=== PATIENT | female | born 2000 | race Two or more races ===

== ENCOUNTER 2024-04-19 20:19 | Inpatient (IN) | payer MEDICAID ==
[~2024-04-19] VITALS: Ht 180.3 cm; Wt 72.1 kg
[2024-04-19 20:34] LABS: COVID AG,FIA SOURCE NASAL SWAB
[2024-04-19 20:45] VITALS: O2SAT 99
[2024-04-19 20:52] LABS: BASOPHILS % (AUTO) 0.1 % (0.0-2.0); EOSINOPHILS % (AUTO) 0.2 % (1.0-6.0); HEMOGLOBIN 13.2 g/dL (12.0-16.0); LYMPHOCYTES # (AUTO) 1.4 K/uL (1.0-4.8); LYMPHOCYTES % (AUTO) 16.1 % (22.0-44.0); MEAN CORPUSCULAR HEMOGLOBIN 30.3 pg (26.0-34.0); MEAN CORPUSCULAR VOLUME 92 fL (80-100); MONOCYTES # (AUTO) 0.7 K/uL (0.1-1.0); MONOCYTES % (AUTO) 7.8 % (2.0-9.0); NEUTROPHILS # (AUTO) 6.4 K/uL (1.8-7.7); NEUTROPHILS % (AUTO) 75.8 % (40.0-70.0); PLATELET COUNT (AUTO) 236 K/uL (150-450); RED BLOOD CELL COUNT(AUTO) 4.37 MIL/uL (4.00-5.20); RED CELL DISTRIBUTION WIDTH 13.3 % (11.5-14.5); WHITE BLOOD COUNT (AUTO) 8.4 K/uL (4.5-11.0)
[2024-04-19 20:59] LABS: SARS-COV2 (COVID) ANTIGEN,FIA Negative (Negative)
[2024-04-19 21:02] LABS: ANION GAP 13 mmol/L (8-16); CALCIUM, TOTAL 9.3 mg/dL (8.8-10.5); CARBON DIOXIDE 22 mmol/L (22-29); CHLORIDE 103 mmol/L (98-107); CREATININE 0.74 mg/dL (0.60-1.30); GLOMERULAR FILTR. RATE CALC > 60 mL/min (>60); GLUCOSE,RANDOM 104 mg/dL (70-110); POTASSIUM 3.8 mmol/L (3.5-5.1); SODIUM SERUM 138 mmol/L (136-145); UREA NITROGEN, BLOOD 8 mg/dL (7-18)
[2024-04-19 21:04] LABS: ALCOHOL, URINE DRUG SCREEN NEGATIVE (NEGATIVE); AMPHET/METH SCREEN,URINE NEGATIVE (NEGATIVE); BARBITURATE SCREEN, URINE NEGATIVE (NEGATIVE); BENZODIAZEPINES SCREEN,URINE NEGATIVE (NEGATIVE); CANNABINOID SCREEN,URINE POSITIVE (NEGATIVE); COCAINE SCREEN,URINE NEGATIVE (NEGATIVE); METHADONE SCREEN, URINE NEGATIVE (NEGATIVE); OPIATE SCREEN,URINE NEGATIVE (NEGATIVE); PHENCYCLIDINE SCREEN,URINE NEGATIVE (NEGATIVE)
[2024-04-19 21:22] LABS: ALCOHOL, BLOOD (SERUM) < 3 mg/dL (0-10)
[2024-04-19] MEDS: HALOPERIDOL 5 MG TABLET PO ONE (21:28)
[2024-04-19] MEDS: LORazepam 2 MG TABLET PO ONE (21:29)
[2024-04-19] MEDS: DiphenhydrAMINE HCL 50 MG CAPSULE PO ONE (21:29)
[2024-04-19] MEDS ORDERED: HALOPERIDOL 5 MG TABLET PO PRN (23:45)
[2024-04-20 08:10] VITALS: BP 115/77; PULSE 95; RESP 16; TEMP 98.2; O2SAT 98
[2024-04-20] MEDS: RisperiDONE 1 MG TABLET PO SCH (11:37)
[2024-04-20 20:41] VITALS: BP 120/78; PULSE 100; RESP 18; TEMP 97.5; O2SAT 100
[2024-04-20] MEDS: ZOLPIDEM TARTRATE 10 MG TABLET PO PRN (22:14)
[2024-04-21 08:19] VITALS: BP 127/83; PULSE 100; RESP 16; TEMP 97.5; O2SAT 98
[2024-04-21] MEDS: LORazepam 2 MG TABLET PO PRN (09:57)
[2024-04-21] MEDS ORDERED: LOPERAMIDE HCL 2 MG CAPSULE PO PRN (11:45)
[2024-04-21] MEDS ORDERED: DOCUSATE SODIUM 100 MG CAPSULE PO PRN (11:45)
[2024-04-21] MEDS ORDERED: ONDANSETRON 4 MG TABLET PO PRN (11:45)
[2024-04-21] MEDS ORDERED: NICOTINE 14 MG/24 HOUR PATCH TD PRN (11:45)
[2024-04-21] MEDS ORDERED: ALBUTEROL SULFATE HFA 90 MCG/PUFF 8 GM INHALER IH PRN (11:45)
[2024-04-21] MEDS ORDERED: MAG HYDROX/ALUMINUM HYD/SIMETH ES 30 ML SUSPENSION UDCUP PO PRN (11:45)
[2024-04-21] MEDS ORDERED: CloNIDine HCL 0.1 MG TABLET PO PRN (11:45)
[2024-04-21] MEDS ORDERED: MAGNESIUM HYDROXIDE SUSPENSION 30 ML UDCUP PO PRN (11:45)
[2024-04-21] MEDS ORDERED: GuaiFENesin/D-METHORPHAN [SUGAR-FREE] 200-20MG/10 ML SYRUP UDCUP PO PRN (11:45)
[2024-04-21] MEDS ORDERED: PETROLATUM,WHITE 28 GM JELLY TP PRN (11:45)
[2024-04-21 20:13] VITALS: BP 116/76; PULSE 95; RESP 16; TEMP 79.8; O2SAT 98
[2024-04-21 21:21] VITALS: BP 116/76; PULSE 95; RESP 16; TEMP 97.8; O2SAT 98
[2024-04-22 08:18] VITALS: BP 128/76; PULSE 100; RESP 18; TEMP 97; O2SAT 98
[2024-04-22 08:21] LABS: CHOL/HDL RATIO 1.6 (3.9-5.7); THYROID STIMULATING HORMONE 0.86 uIU/mL (0.36-3.74)
[2024-04-22 18:03] VITALS: BP 126/77; PULSE 98; RESP 18; TEMP 97.6; O2SAT 100
[2024-04-22] MEDS: ACETAMINOPHEN 325 MG TABLET PO PRN (18:03)
[2024-04-22 19:03] VITALS: BP 120/75; PULSE 103; RESP 18; TEMP 97.8; O2SAT 100
[2024-04-22] MEDS ORDERED: RISP-31 PO (19:25)
[2024-04-22 20:28] VITALS: BP 120/75; PULSE 103; RESP 18; TEMP 97; O2SAT 100
[2024-04-23] MEDS: IBUPROFEN 400 MG TABLET PO PRN (02:54)
[2024-04-23 02:58] VITALS: BP 118/72; PULSE 96; RESP 17; TEMP 98.4; O2SAT 98
[2024-04-23 08:03] VITALS: BP 123/70; PULSE 92; RESP 16; TEMP 98.2; O2SAT 98
== END 2024-04-23 09:20 | disposition home or self-care (01) | DRG 776 ==
LOC: EMS 20:19 → B3A 04-20 00:10
PROVIDERS: ADMIT Psychiatry & Neurology Psychiatry; ATTEND Psychiatry & Neurology Psychiatry
PROC: GZHZZZZ Group Psychotherapy (ICD-10-PCS; principal; 2024-04-20)
PROC: GZ58ZZZ Individual Psychotherapy, Cognitive-Behavioral (ICD-10-PCS; 2024-04-21)
DX: F19.959 Other psychoactive substance use, unspecified with psychoactive substance-induced psychotic disorder, unspecified (principal); F20.0 Paranoid schizophrenia; F32.9 Major depressive disorder, single episode, unspecified; G47.00 Insomnia, unspecified; F41.9 Anxiety disorder, unspecified; K59.00 Constipation, unspecified; Z20.822 Contact with and (suspected) exposure to COVID-19; Z79.899 Other long term (current) drug therapy
CPT/HCPCS: 80048; 80061; 80307; 83036; 84443; 85025; 99285; G0480

== ENCOUNTER 2025-06-28 20:38 | Emergency (ER) | payer SELFPAY ==
[~2025-06-28] VITALS: Ht 180.3 cm; Wt 72.7 kg
[~2025-06-28 20:38] MED LIST: RISP-31 PO
[2025-06-28] MEDS: ACETAMINOPHEN 500 MG TABLET PO ONE (21:42)
[2025-06-28] MEDS ORDERED: AMOX500C2 PO (21:59)
[2025-06-28 22:10] VITALS: BP 100/56; PULSE 89; RESP 14; TEMP 100.4; O2SAT 99
== END 2025-06-28 22:15 | disposition home or self-care (01) ==
LOC: EMS 20:58
DX: S63.611A Unspecified sprain of left index finger, initial encounter (principal); H66.91 Otitis media, unspecified, right ear; Z79.899 Other long term (current) drug therapy; X58.XXXA Exposure to other specified factors, initial encounter; Y93.89 Activity, other specified; Y92.89 Other specified places as the place of occurrence of the external cause; Y99.8 Other external cause status
CPT/HCPCS: 99283

== ENCOUNTER 2025-07-01 16:04 | Emergency (ER) | payer BC, MEDICAID ==
[~2025-07-01] VITALS: Ht 180.3 cm; Wt 70.5 kg
[~2025-07-01 16:04] MED LIST changes: +AMOX500C2 PO
[2025-07-01] MEDS ORDERED: paracetamol PO (16:17)
[2025-07-01 16:52] LABS: COVID AG,FIA SOURCE NASAL SWAB
[2025-07-01 17:15] LABS: SARS-COV2 (COVID) ANTIGEN,FIA Negative (Negative)
[2025-07-01 17:16] LABS: INFLUENZA TYPE A NEGATIVE FOR TYPE A (NEGATIVE); INFLUENZA TYPE B NEGATIVE FOR TYPE B (NEGATIVE)
[2025-07-01] MEDS: IBUPROFEN 600 MG TABLET PO ONE (17:19)
[2025-07-01] MEDS: SODIUM CHLORIDE 0.9% 1,000 ML IV ONE (17:20)
[2025-07-01] MEDS: ACETAMINOPHEN 325 MG TABLET PO ONE (17:20)
[2025-07-01 17:26] LABS: PLATELET COUNT (AUTO) 92 K/uL (150-450); RED BLOOD CELL COUNT(AUTO) 4.74 MIL/uL (4.00-5.20); RED CELL DISTRIBUTION WIDTH 12.4 % (11.5-14.5); WHITE BLOOD COUNT (AUTO) 2.2 K/uL (4.5-11.0)
[2025-07-01 17:33] LABS: CALCIUM, TOTAL 8.5 mg/dL (8.8-10.5); CREATININE 1.02 mg/dL (0.60-1.30); GLOMERULAR FILTR. RATE CALC > 60 mL/min (>60); GLUCOSE,RANDOM 98 mg/dL (70-110); SODIUM SERUM 131 mmol/L (136-145); UREA NITROGEN, BLOOD 12 mg/dL (7-18)
[2025-07-01 19:30] VITALS: BP 127/70; PULSE 110; RESP 16; TEMP 99.3; O2SAT 97
== END 2025-07-01 20:30 | disposition home or self-care (01) ==
LOC: EMS 16:04
DX: J06.9 Acute upper respiratory infection, unspecified (principal); B97.89 Other viral agents as the cause of diseases classified elsewhere; R05.9 Cough, unspecified; Z79.899 Other long term (current) drug therapy; Z20.822 Contact with and (suspected) exposure to COVID-19
CPT/HCPCS: 99284; 96360; 71045; 96361; 87426; 80048; 85025; 87804; 36415; J7030